=== PATIENT | male | born 1960 | race American Indian/Alaskan Native ===

== ENCOUNTER 2020-04-12 06:26 | Observation (INO) | payer OTHER ==
[2020-04-12 07:39] LABS: Hemoglobin 6.3 gm/dl (11.8-15.2); Mean Corpuscular HGB Conc 32 % (32-34); Mean Corpuscular Volume 76 fl (84-94); Platelet Count 263 K/mm3 (140-440); Red Blood Count 2.58 M/mm3 (3.65-5.03)
[2020-04-12 07:45] LABS: Hematocrit 19.7 % (35.5-45.6); Red Cell Distribution Width 23.6 % (13.2-15.2)
[2020-04-12 07:48] LABS: Calcium 9.2 mg/dL (8.4-10.2)
[2020-04-12 07:51] LABS: INR 1.03 (0.87-1.13)
[2020-04-12 07:52] LABS: Partial Thromboplastin Time 31.2 Sec. (24.2-36.6)
[2020-04-12] MEDS ORDERED: SODIUM CHLORIDE 0.9% 500 ML 500 ML IV SCH ×2 (08:00→10:00)
[2020-04-12 08:15] LABS: Hemoglobin 6.2 gm/dl (11.8-15.2); Mean Corpuscular HGB Conc 32 % (32-34); Mean Corpuscular Volume 77 fl (84-94); Platelet Count 259 K/mm3 (140-440); Red Blood Count 2.52 M/mm3 (3.65-5.03)
[2020-04-12 08:19] LABS: Hematocrit 19.5 % (35.5-45.6)
[2020-04-12 08:20] LABS: Red Cell Distribution Width 23.6 % (13.2-15.2)
[2020-04-12 08:31] LABS: Calcium 8.9 mg/dL (8.4-10.2)
[2020-04-12 09:17] LABS: Total Cells Counted 100
[2020-04-12 09:18] LABS: Anisocytosis 2+; Hypochromasia 1+; Platelet Estimate Consistent w Auto; Schistocytes 1+
[2020-04-12 09:24] LABS: Total Cells Counted 100
[2020-04-12 09:25] LABS: Anisocytosis 2+; Hypochromasia 1+; Platelet Estimate Consistent w Auto; Schistocytes 1+
[2020-04-12] MEDS ORDERED: FAMOTIDINE 20 MG TAB PO SCH (10:00)
[2020-04-12] MEDS ORDERED: ONDANSETRON 4 MG/2 ML INJ IV PRN (10:00)
[2020-04-12] MEDS ORDERED: NON-FORMULARY EACH (Simvastatin [Simvastatin] 20 MG Tablet) PO SCH (10:00)
[2020-04-12] MEDS ORDERED: ACETAMINOPHEN 325 MG TAB PO PRN (10:00)
[2020-04-12] MEDS ORDERED: HYDROmorphone 1 MG/1 ML INJ IV PRN (10:00)
[2020-04-12] MEDS ORDERED: oxyCODONE /ACETAMINOPHEN 5-325MG TAB PO PRN (10:00)
[2020-04-12] MEDS: SODIUM CHLORIDE 0.9% 1000 ML 1,000 ML IV SCH (10:00)
[2020-04-12] MEDS: FAMOTIDINE 10 MG TAB PO SCH ×2 (10:43→21:52)
--- NOTE | 2020-04-12 11:21 | Consultation ---
History of Present Illness Consult date: 04/12/20 Requesting physician: ETHEL HATHAWAY Consult reason: chest pain, known to you History of present illness: The pt is a 59 YO male with a past medical history of CAD s/p CABG, HTN, DM. He is followed in our office by Dr. Noa Palacios. He has been c/o some chest pain, dyspnea and palpitations and thus was scheduled for elective LHC today. Following arrival for procedure, labwork was noted to be significant for severe anemia with H/H 6.2/19.5 and ANGY with BUN/Cr 25/1.7 and therefore LHC was post- poned and pt admitted per hospitalists for further evaluation and management. Past History Past Medical History: CAD, diabetes, hypertension Past Surgical History: CABG Medications and Allergies Allergies Allergy/AdvReac Type Severity Reaction Status Date / Time No Known Allergies Allergy Unverified 11/27/12 21:06 Home Medications Medication Instructions Recorded Confirmed Last Taken Type Saxagliptin HCl/Metformin HCl 11/27/12 11/27/12 Unknown History [Kombiglyze XR 2.5-1,000 mg] Simvastatin 40 mg PO QDAY 11/27/12 11/27/12 Unknown History glipiZIDE [Glucotrol] 10 mg PO BID 11/27/12 11/27/12 Unknown History Active Meds: Active Medications Acetaminophen (Acetaminophen 325 Mg Tab) 650 mg PO Q4H PRN PRN Reason: Pain MILD(1-3)/Fever >100.5/CERVANTES Famotidine (Famotidine 10 Mg Tab) 10 mg PO BID ROE Last Admin: 04/12/20 10:43 Dose: 10 mg Documented by: Hydromorphone HCl (Hydromorphone 1 Mg/1 Ml Inj) 0.5 mg IV Q3H PRN PRN Reason: Pain , Severe (7-10) Sodium Chloride (Nacl 0.9% 500 Ml) 500 mls @ 50 mls/hr IV DIRECT ROE Stop: 04/12/20 17:59 Sodium Chloride (Nacl 0.9% 500 Ml) 500 mls @ 0 mls/hr IV ONCE [facility]E Stop: 04/12/20 18:00 Sodium Chloride (Nacl 0.9% 1000 Ml) 1,000 mls @ 75 mls/hr IV DIRECT [facility] Last Admin: 04/12/20 10:00 Dose: 75 mls/hr Documented by: Insulin Human Lispro (Insulin Lispro 100 Unit/Ml Vial 3 Ml) 0 unit SUB-Q ACHS COUNTS INCLUDE 234 BEDS AT THE [facility]; Protocol Ondansetron HCl (Ondansetron 4 Mg/2 Ml Inj) 4 mg IV Q8H PRN PRN Reason: Nausea And Vomiting Oxycodone/Acetaminophen (Oxycodone /Acetaminophen 5-325mg Tab) 1 tab PO Q6H PRN PRN Reason: Pain, Moderate (4-6) Pravastatin Sodium (Pravastatin 80 Mg Tab) 80 mg PO QHS COUNTS INCLUDE 234 BEDS AT THE [facility] Sodium Chloride (Sodium Chloride 0.9% 10 Ml Flush Syringe) 10 ml IV BID COUNTS INCLUDE 234 BEDS AT THE [facility] Last Admin: 04/12/20 10:43 Dose: 10 ml Documented by: Sodium Chloride (Sodium Chloride 0.9% 10 Ml Flush Syringe) 10 ml IV PRN PRN PRN Reason: LINE FLUSH Review of Systems Constitutional: no weight loss, no weight gain, no fever, no chills, no sweats Ears, nose, mouth and throat: no ear pain, no nose pain, no sinus pressure, no sinus pain Cardiovascular: chest pain, palpitations, shortness of breath, dyspnea on exertion, no orthopnea, no edema, no syncope, no lightheadedness Respiratory: shortness of breath, dyspnea on exertion, no cough, no congestion, no wheezing, no pain on inspiration Gastrointestinal: no abdominal pain, no nausea, no vomiting, no diarrhea, no constipation, no change in bowel habits, no hematemesis, no coffee ground emesis, no BRBPR, no melena Genitourinary Male: no dysuria, no hematuria, no flank pain, no discharge, no urinary frequency, no urinary hesitancy Musculoskeletal: no neck stiffness, no neck pain, no shooting arm pain, no arm numbness/tingling, no low back pain, no shooting leg pain Integumentary: no rash, no pruritis, no redness, no sores, no wounds Neurological: no head injury, no paralysis, no weakness, no parathesias, no numbness, no tingling, no seizures, no syncope Psychiatric: no anxiety Endocrine: no cold intolerance, no heat intolerance Hematologic/Lymphatic: no easy bruising Allergic/Immunologic: no urticaria Physical Examination General appearance: no acute distress HEENT: Positive: PERRL, Normocephaly, Mucus Membranes Moist Neck: Positive: neck supple, trachea midline Cardiac: Positive: Reg Rate and Rhythm, S1/S2 Lungs: Positive: clear to auscultation Neuro: Positive: Grossly Intact Abdomen: Negative: Tender Skin: Negative: Rash Musculoskeletal: No Pain Extremities: Absent: edema Results 04/12/20 08:05 04/12/20 08:05 Coagulation 04/12/20 Range/Units 07:25 PT 13.4 (12.2-14.9) Sec. INR 1.03 (0.87-1.13) APTT 31.2 (24.2-36.6) Sec. CBC 04/12/20 04/12/20 Range/Units 07:25 08:05 WBC 8.7 8.2 (4.5-11.0) K/mm3 RBC 2.58 L 2.52 L (3.65-5.03) M/mm3 Hgb 6.3 L 6.2 L (11.8-15.2) gm/dl Hct 19.7 L* 19.5 L* (35.5-45.6) % Plt Count 263 259 (140-440) K/mm3 Comprehensive Metabolic Panel 04/12/20 04/12/20 Range/Units 07:25 08:05 Sodium 138 139 (137-145) mmol/L Potassium 5.1 H 4.7 (3.6-5.0) mmol/L Chloride 104.9 106.0 (98-107) mmol/L Carbon Dioxide 23 24 (22-30) mmol/L BUN 25 H 25 H (9-20) mg/dL Creatinine 1.7 H 1.7 H (0.8-1.3) mg/dL Glucose 197 H 195 H (75-100) mg/dL Calcium 9.2 8.9 (8.4-10.2) mg/dL - Imaging and Cardiology Echo: pending, report reviewed (tte done 08/2018 showed EF 55-60%, no significant abnormalities ) EKG: report reviewed, image reviewed EKG interpretations - Telemetry EKG Rhythm: Sinus Rhythm - EKG Sinus rhythms and dysrhythmias: sinus rhythm Assessment and Plan PRBC tx and GI consultation pending per primary team. Hold home ASA 81 and plavix in setting of anemia. Resume home statin, lisinopril, no BB due to sinus bradycardia. Initiate IVF in setting of ANGY and f/u BMP in AM. Obtain tte. Plan to proceed with ischemic evaluation after medically stabilized. Currently stable cardiac status. If endoscopy is warranted, may proceed with endoscopy from cardiology standpoint. Will follow. The patient has been seen in conjunction with Dr. Riley who agrees with the assessment and plan of care. - Patient Problems (1) Symptomatic anemia Current Visit: Yes Status: Acute (2) ANGY (acute kidney injury) Current Visit: Yes Status: Acute (3) Chest pain Current Visit: Yes Status: Acute (4) CAD (coronary artery disease) Current Visit: Yes Status: Chronic (5) History of coronary artery bypass graft Current Visit: Yes Status: Chronic (6) HTN (hypertension) Current Visit: Yes Status: Chronic (7) Diabetes Current Visit: Yes Status: Chronic (8) Sinus bradycardia Current Visit: Yes Status: Chronic
[2020-04-12] MEDS: INSULIN LISPRO 100 UNIT/ML VIAL 3 mL SUB-Q SCH ×4 (14:42→22:06)
--- NOTE | 2020-04-12 16:48 | Gastroenterology Consultation ---
History of Present Illness - Reason for Consult Consult date: 04/12/20 anemia/melena Requesting physician: RAMYA CLANCY - History of Present Illness The patient is a 59 yo male with h/o cad/cabg who presented with cp, progressive weakness/sob. planned to have elected LHC, however postponed as pt found to have severe anemia. Pt reports having dark appearing stools for past couple weeks (not black appearing or obvious bleeding however). Denies abd pain , nsaid's, bowel habit changes. + reflux sx's at night. reports having colonoscopy last year with polyps removed but otherwise does not recall other significant findings. Past History Past Medical History: CAD, diabetes, hypertension Past Surgical History: CABG Medications and Allergies Allergies Allergy/AdvReac Type Severity Reaction Status Date / Time No Known Allergies Allergy Unverified 11/27/12 21:06 Home Medications Medication Instructions Recorded Confirmed Last Taken Type Saxagliptin HCl/Metformin HCl 11/27/12 11/27/12 Unknown History [Kombiglyze XR 2.5-1,000 mg] Simvastatin 40 mg PO QDAY 11/27/12 11/27/12 Unknown History glipiZIDE [Glucotrol] 10 mg PO BID 11/27/12 11/27/12 Unknown History Active Meds: Active Medications Acetaminophen (Acetaminophen 325 Mg Tab) 650 mg PO Q4H PRN PRN Reason: Pain MILD(1-3)/Fever >100.5/CERVANTES Atorvastatin Calcium (Atorvastatin 40 Mg Tab) 40 mg PO QHS ROE Famotidine (Famotidine 10 Mg Tab) 10 mg PO BID [facility] Last Admin: 04/12/20 10:43 Dose: 10 mg Documented by: Hydromorphone HCl (Hydromorphone 1 Mg/1 Ml Inj) 0.5 mg IV Q3H PRN PRN Reason: Pain , Severe (7-10) Sodium Chloride (Nacl 0.9% 500 Ml) 500 mls @ 50 mls/hr IV DIRECT ROE Stop: 04/12/20 17:59 Last Admin: 04/12/20 16:21 Dose: 50 mls/hr Documented by: Sodium Chloride (Nacl 0.9% 500 Ml) 500 mls @ 0 mls/hr IV ONCE ROE Stop: 04/12/20 18:00 Sodium Chloride (Nacl 0.9% 1000 Ml) 1,000 mls @ 75 mls/hr IV DIRECT [facility] Last Admin: 04/12/20 10:00 Dose: 75 mls/hr Documented by: Insulin Human Lispro (Insulin Lispro 100 Unit/Ml Vial 3 Ml) 0 unit SUB-Q ACHS [facility]; Protocol Last Admin: 04/12/20 14:42 Dose: Not Given Documented by: Lisinopril (Lisinopril 10 Mg Tab) 10 mg PO QDAY [facility] Ondansetron HCl (Ondansetron 4 Mg/2 Ml Inj) 4 mg IV Q8H PRN PRN Reason: Nausea And Vomiting Oxycodone/Acetaminophen (Oxycodone /Acetaminophen 5-325mg Tab) 1 tab PO Q6H PRN PRN Reason: Pain, Moderate (4-6) Sodium Chloride (Sodium Chloride 0.9% 10 Ml Flush Syringe) 10 ml IV BID [facility] Last Admin: 04/12/20 10:43 Dose: 10 ml Documented by: Sodium Chloride (Sodium Chloride 0.9% 10 Ml Flush Syringe) 10 ml IV PRN PRN PRN Reason: LINE FLUSH reviewed/updated patient's home and current medications Review of Systems - Review of Systems All systems: negative (per HPI) Exam - Constitutional Vital Signs: Temp Pulse Resp BP Pulse Ox 98.0 F 61 18 121/50 100 04/12/20 10:55 04/12/20 10:55 04/12/20 10:55 04/12/20 10:55 04/12/20 10:55 General appearance: no acute distress - Respiratory Respiratory effort: normal Respiratory: bilateral: CTA - Cardiovascular Rhythm: regular Heart Sounds: Present: S1 & S2 - Gastrointestinal General gastrointestinal: Present: soft, non-tender, non-distended - Integumentary Integumentary: Present: clear, warm - Neurologic Neurological: alert and oriented x3 - Psychiatric Psychiatric: appropriate mood/affect - Labs CBC & Chem 7: 04/12/20 08:05 04/12/20 08:05 Lab Results: Laboratory Results - last 24 hr 04/12/20 04/12/20 04/12/20 07:25 07:25 07:25 WBC 8.7 RBC 2.58 L Hgb 6.3 L Hct 19.7 L* MCV 76 L MCH 24 L MCHC 32 RDW 23.6 H Plt Count 263 Add Manual Diff Complete Total Counted 100 Seg Neuts % (Manual) 90.0 H Lymphocytes % (Manual) 7.0 L Monocytes % (Manual) 2.0 Eosinophils % (Manual) 1.0 Nucleated RBC % Not Reportable Seg Neutrophils # Man 7.8 H Band Neutrophils # 0.0 Lymphocytes # (Manual) 0.6 L Abs React Lymphs (Man) 0.0 Monocytes # (Manual) 0.2 Eosinophils # (Manual) 0.1 Basophils # (Manual) 0.0 Metamyelocytes # 0.0 Myelocytes # 0.0 Promyelocytes # 0.0 Blast Cells # 0.0 WBC Morphology Not Reportable Hypersegmented Neuts Not Reportable Hyposegmented Neuts Not Reportable Hypogranular Neuts Not Reportable Smudge Cells Not Reportable Toxic Granulation Not Reportable Toxic Vacuolation Not Reportable Dohle Bodies Not Reportable Pelger-Huet Anomaly Not Reportable Ember Rods Not Reportable Platelet Estimate Consistent w auto Clumped Platelets Not Reportable Plt Clumps, EDTA Not Reportable Large Platelets Not Reportable Giant Platelets Not Reportable Platelet Satelliting Not Reportable Plt Morphology Comment Not Reportable RBC Morphology Not Reportable Dimorphic RBCs Not Reportable Polychromasia Few Hypochromasia 1+ Poikilocytosis Not Reportable Anisocytosis 2+ Microcytosis Not Reportable Macrocytosis Not Reportable Spherocytes Not Reportable Pappenheimer Bodies Not Reportable Sickle Cells Not Reportable Target Cells Not Reportable Tear Drop Cells Not Reportable Ovalocytes Not Reportable Helmet Cells Not Reportable [place] Bodies Not Reportable Valentines Rings Not Reportable [place] Cells Not Reportable Bite Cells Not Reportable Crenated Cell Not Reportable Elliptocytes Not Reportable Acanthocytes (Spur) Not Reportable Rouleaux Not Reportable Hemoglobin C Crystals Not Reportable Schistocytes 1+ Malaria parasites Not Reportable Ariel Bodies Not Reportable Hem Pathologist Commnt No PT 13.4 INR 1.03 APTT 31.2 Sodium 138 Potassium 5.1 H Chloride 104.9 Carbon Dioxide 23 Anion Gap 15 BUN 25 H Creatinine 1.7 H Estimated GFR 50 BUN/Creatinine Ratio 15 Glucose 197 H POC Glucose Hemoglobin A1c Calcium 9.2 Blood Type Antibody Screen Crossmatch 04/12/20 04/12/20 04/12/20 08:05 08:05 13:35 WBC 8.2 RBC 2.52 L Hgb 6.2 L Hct 19.5 L* MCV 77 L MCH 25 L MCHC 32 RDW 23.6 H Plt Count 259 Add Manual Diff Complete Total Counted 100 Seg Neuts % (Manual) 82.0 H Lymphocytes % (Manual) 13.0 L Monocytes % (Manual) 4.0 Eosinophils % (Manual) 1.0 Nucleated RBC % Not Reportable Seg Neutrophils # Man 6.7 Band Neutrophils # 0.0 Lymphocytes # (Manual) 1.1 L Abs React Lymphs (Man) 0.0 Monocytes # (Manual) 0.3 Eosinophils # (Manual) 0.1 Basophils # (Manual) 0.0 Metamyelocytes # 0.0 Myelocytes # 0.0 Promyelocytes # 0.0 Blast Cells # 0.0 WBC Morphology Not Reportable Hypersegmented Neuts Not Reportable Hyposegmented Neuts Not Reportable Hypogranular Neuts Not Reportable Smudge Cells Not Reportable Toxic Granulation Not Reportable Toxic Vacuolation Not Reportable Dohle Bodies Not Reportable Pelger-Huet Anomaly Not Reportable Ember Rods Not Reportable Platelet Estimate Consistent w auto Clumped Platelets Not Reportable Plt Clumps, EDTA Not Reportable Large Platelets Not Reportable Giant Platelets Not Reportable Platelet Satelliting Not Reportable Plt Morphology Comment Not Reportable RBC Morphology Not Reportable Dimorphic RBCs Not Reportable Polychromasia Few Hypochromasia 1+ Poikilocytosis Not Reportable Anisocytosis 2+ Microcytosis Not Reportable Macrocytosis Not Reportable Spherocytes Not Reportable Pappenheimer Bodies Not Reportable Sickle Cells Not Reportable Target Cells Not Reportable Tear Drop Cells Not Reportable Ovalocytes Not Reportable Helmet Cells Not Reportable [place] Bodies Not Reportable Valentines Rings Not Reportable [place] Cells Not Reportable Bite Cells Not Reportable Crenated Cell Not Reportable Elliptocytes Not Reportable Acanthocytes (Spur) Not Reportable Rouleaux Not Reportable Hemoglobin C Crystals Not Reportable Schistocytes 1+ Malaria parasites Not Reportable Ariel Bodies Not Reportable Hem Pathologist Commnt No PT INR APTT Sodium 139 Potassium 4.7 Chloride 106.0 Carbon Dioxide 24 Anion Gap 14 BUN 25 H Creatinine 1.7 H Estimated GFR 50 BUN/Creatinine Ratio 15 Glucose 195 H POC Glucose Hemoglobin A1c 6.3 H Calcium 8.9 Blood Type Antibody Screen Crossmatch 04/12/20 04/12/20 13:42 14:10 WBC RBC Hgb Hct MCV MCH MCHC RDW Plt Count Add Manual Diff Total Counted Seg Neuts % (Manual) Lymphocytes % (Manual) Monocytes % (Manual) Eosinophils % (Manual) Nucleated RBC % Seg Neutrophils # Man Band Neutrophils # Lymphocytes # (Manual) Abs React Lymphs (Man) Monocytes # (Manual) Eosinophils # (Manual) Basophils # (Manual) Metamyelocytes # Myelocytes # Promyelocytes # Blast Cells # WBC Morphology Hypersegmented Neuts Hyposegmented Neuts Hypogranular Neuts Smudge Cells Toxic Granulation Toxic Vacuolation Dohle Bodies Pelger-Huet Anomaly Ember Rods Platelet Estimate Clumped Platelets Plt Clumps, EDTA Large Platelets Giant Platelets Platelet Satelliting Plt Morphology Comment RBC Morphology Dimorphic RBCs Polychromasia Hypochromasia Poikilocytosis Anisocytosis Microcytosis Macrocytosis Spherocytes Pappenheimer Bodies Sickle Cells Target Cells Tear Drop Cells Ovalocytes Helmet Cells [place] Bodies Valentines Rings Radha Cells Bite Cells Crenated Cell Elliptocytes Acanthocytes (Spur) Rouleaux Hemoglobin C Crystals Schistocytes Malaria parasites Ariel Bodies Hem Pathologist Commnt PT INR APTT Sodium Potassium Chloride Carbon Dioxide Anion Gap BUN Creatinine Estimated GFR BUN/Creatinine Ratio Glucose POC Glucose 161 H Hemoglobin A1c Calcium Blood Type O POSITIVE Antibody Screen Negative Crossmatch See Detail Assessment and Plan 1. Microcytic anemia - unclear baseline (states he had anemia last year from pcp labs); also with renal disease which may be contributing to anemia. however, reports recent dark stools, so will plan EGD tomorrow to assess for possible upper gi source of anemia. reports having colonoscopy last year in [place], will attempt to obtain records. blood transfusions pending. HD stable and no signs of active bleeding at this time.
--- NOTE | 2020-04-12 18:05 | History and Physical Report ---
History of Present Illness Date of examination: 04/12/20 Date of admission: 04/12/20 09:18 Chief complaint: Blood products used for 1 week History of present illness: 59-year-old male with history of coronary artery disease status post CABG followed sent from [facility] for cardiac cath. Patient was apparently having shortness of breath on minimal exertion and getting fatigued easily. In the [place] patient was found to have a hemoglobin of around 6.1 and so the Procedure was proceeded was postponed. On history taking patient has apparently been taking Motrin and has been having black tarry stools for the last 1 week. Patient ignored the symptoms and did not consult any physician. Patient has been getting shortness of breath on very minimal exertion. Also chest discomfort. No syncope. Patient being admitted for the low hemoglobin and hematocrit and work-up for possible GI bleed. Past History Past Medical History: CAD, diabetes, hypertension Past Surgical History: CABG Social history: lives with family, smoking, full code Medications and Allergies Allergies Allergy/AdvReac Type Severity Reaction Status Date / Time No Known Allergies Allergy Unverified 11/27/12 21:06 Home Medications Medication Instructions Recorded Confirmed Last Taken Type Saxagliptin HCl/Metformin HCl 11/27/12 11/27/12 Unknown History [Kombiglyze XR 2.5-1,000 mg] Simvastatin 40 mg PO QDAY 11/27/12 11/27/12 Unknown History glipiZIDE [Glucotrol] 10 mg PO BID 11/27/12 11/27/12 Unknown History Active Meds: Active Medications Acetaminophen (Acetaminophen 325 Mg Tab) 650 mg PO Q4H PRN PRN Reason: Pain MILD(1-3)/Fever >100.5/CERVANTES Atorvastatin Calcium (Atorvastatin 40 Mg Tab) 40 mg PO QHS [facility] Famotidine (Famotidine 10 Mg Tab) 10 mg PO BID [facility] Last Admin: 04/12/20 10:43 Dose: 10 mg Documented by: Hydromorphone HCl (Hydromorphone 1 Mg/1 Ml Inj) 0.5 mg IV Q3H PRN PRN Reason: Pain , Severe (7-10) Sodium Chloride (Nacl 0.9% 1000 Ml) 1,000 mls @ 75 mls/hr IV DIRECT ROE Last Admin: 04/12/20 10:00 Dose: 75 mls/hr Documented by: Insulin Human Lispro (Insulin Lispro 100 Unit/Ml Vial 3 Ml) 0 unit SUB-Q ACHS [facility]; Protocol Last Admin: 04/12/20 14:42 Dose: Not Given Documented by: Lisinopril (Lisinopril 10 Mg Tab) 10 mg PO QDAY [facility] Ondansetron HCl (Ondansetron 4 Mg/2 Ml Inj) 4 mg IV Q8H PRN PRN Reason: Nausea And Vomiting Oxycodone/Acetaminophen (Oxycodone /Acetaminophen 5-325mg Tab) 1 tab PO Q6H PRN PRN Reason: Pain, Moderate (4-6) Sodium Chloride (Sodium Chloride 0.9% 10 Ml Flush Syringe) 10 ml IV BID [facility] Last Admin: 04/12/20 10:43 Dose: 10 ml Documented by: Sodium Chloride (Sodium Chloride 0.9% 10 Ml Flush Syringe) 10 ml IV PRN PRN PRN Reason: LINE FLUSH Review of Systems All systems: negative Constitutional: fatigue, weakness Cardiovascular: chest pain, shortness of breath, dyspnea on exertion Respiratory: shortness of breath, dyspnea on exertion Gastrointestinal: melena Exam - Constitutional Vitals: Temp Pulse Resp BP Pulse Ox 97.6 F 63 16 128/38 100 04/12/20 17:05 04/12/20 17:05 04/12/20 17:05 04/12/20 17:05 04/12/20 17:05 General appearance: Present: no acute distress, well-nourished - EENT Eyes: Present: PERRL ENT: hearing intact, clear oral mucosa - Neck Neck: Present: supple, normal ROM - Respiratory Respiratory effort: normal Respiratory: bilateral: CTA - Cardiovascular Heart Sounds: Present: S1 & S2. Absent: rub, click - Extremities Extremities: pulses symmetrical, No edema Peripheral Pulses: within normal limits - Abdominal General gastrointestinal: Present: soft, non-tender, non-distended, normal bowel sounds Male genitourinary: Present: normal - Rectal Rectal Exam: stool dark (Occult blood positive) - Integumentary Integumentary: Present: clear, warm, dry - Musculoskeletal Musculoskeletal: gait normal, strength equal bilaterally - Psychiatric Psychiatric: appropriate mood/affect, intact judgment & insight - Neurologic Neurologic: CNII-XII intact, moves all extremities - Allied Health Allied health notes reviewed: nursing, case management HEART Score - HEART Score Age: 45-65 Risk factors: 1-2 risk factors Troponin: 1-3x normal limit - Critical Actions Critical Actions: 4-6 pts:12-16.6% risk of adverse cardiac event. Should be admitted Results - Labs CBC & Chem 7: 04/13/20 04:48 04/13/20 04:48 Labs: Laboratory Last Values WBC 8.2 K/mm3 (4.5-11.0) 04/12/20 08:05 RBC 2.52 M/mm3 (3.65-5.03) L 04/12/20 08:05 Hgb 6.2 gm/dl (11.8-15.2) L 04/12/20 08:05 Hct 19.5 % (35.5-45.6) L* 04/12/20 08:05 MCV 77 fl (84-94) L 04/12/20 08:05 MCH 25 pg (28-32) L 04/12/20 08:05 MCHC 32 % (32-34) 04/12/20 08:05 RDW 23.6 % (13.2-15.2) H 04/12/20 08:05 Plt Count 259 K/mm3 (140-440) 04/12/20 08:05 Add Manual Diff Complete 04/12/20 08:05 Total Counted 100 04/12/20 08:05 Seg Neuts % (Manual) 82.0 % (40.0-70.0) H 04/12/20 08:05 Lymphocytes % (Manual) 13.0 % (13.4-35.0) L 04/12/20 08:05 Monocytes % (Manual) 4.0 % (0.0-7.3) 04/12/20 08:05 Eosinophils % (Manual) 1.0 % (0.0-4.3) 04/12/20 08:05 Nucleated RBC % Not Reportable 04/12/20 08:05 Seg Neutrophils # Man 6.7 K/mm3 (1.8-7.7) 04/12/20 08:05 Band Neutrophils # 0.0 K/mm3 04/12/20 08:05 Lymphocytes # (Manual) 1.1 K/mm3 (1.2-5.4) L 04/12/20 08:05 Abs React Lymphs (Man) 0.0 K/mm3 04/12/20 08:05 Monocytes # (Manual) 0.3 K/mm3 (0.0-0.8) 04/12/20 08:05 Eosinophils # (Manual) 0.1 K/mm3 (0.0-0.4) 04/12/20 08:05 Basophils # (Manual) 0.0 K/mm3 (0.0-0.1) 04/12/20 08:05 Metamyelocytes # 0.0 K/mm3 04/12/20 08:05 Myelocytes # 0.0 K/mm3 04/12/20 08:05 Promyelocytes # 0.0 K/mm3 04/12/20 08:05 Blast Cells # 0.0 K/mm3 04/12/20 08:05 WBC Morphology Not Reportable 04/12/20 08:05 Hypersegmented Neuts Not Reportable 04/12/20 08:05 Hyposegmented Neuts Not Reportable 04/12/20 08:05 Hypogranular Neuts Not Reportable 04/12/20 08:05 Smudge Cells Not Reportable 04/12/20 08:05 Toxic Granulation Not Reportable 04/12/20 08:05 Toxic Vacuolation Not Reportable 04/12/20 08:05 Dohle Bodies Not Reportable 04/12/20 08:05 Pelger-Huet Anomaly Not Reportable 04/12/20 08:05 Ember Rods Not Reportable 04/12/20 08:05 Platelet Estimate Consistent w auto 04/12/20 08:05 Clumped Platelets Not Reportable 04/12/20 08:05 Plt Clumps, EDTA Not Reportable 04/12/20 08:05 Large Platelets Not Reportable 04/12/20 08:05 Giant Platelets Not Reportable 04/12/20 08:05 Platelet Satelliting Not Reportable 04/12/20 08:05 Plt Morphology Comment Not Reportable 04/12/20 08:05 RBC Morphology Not Reportable 04/12/20 08:05 Dimorphic RBCs Not Reportable 04/12/20 08:05 Polychromasia Few 04/12/20 08:05 Hypochromasia 1+ 04/12/20 08:05 Poikilocytosis Not Reportable 04/12/20 08:05 Anisocytosis 2+ 04/12/20 08:05 Microcytosis Not Reportable 04/12/20 08:05 Macrocytosis Not Reportable 04/12/20 08:05 Spherocytes Not Reportable 04/12/20 08:05 Pappenheimer Bodies Not Reportable 04/12/20 08:05 Sickle Cells Not Reportable 04/12/20 08:05 Target Cells Not Reportable 04/12/20 08:05 Tear Drop Cells Not Reportable 04/12/20 08:05 Ovalocytes Not Reportable 04/12/20 08:05 Helmet Cells Not Reportable 04/12/20 08:05 [place] Bodies Not Reportable 04/12/20 08:05 [place] Rings Not Reportable 04/12/20 08:05 [place] Cells Not Reportable 04/12/20 08:05 Bite Cells Not Reportable 04/12/20 08:05 Crenated Cell Not Reportable 04/12/20 08:05 Elliptocytes Not Reportable 04/12/20 08:05 Acanthocytes (Spur) Not Reportable 04/12/20 08:05 Rouleaux Not Reportable 04/12/20 08:05 Hemoglobin C Crystals Not Reportable 04/12/20 08:05 Schistocytes 1+ 04/12/20 08:05 Malaria parasites Not Reportable 04/12/20 08:05 Ariel Bodies Not Reportable 04/12/20 08:05 Hem Pathologist Commnt No 04/12/20 08:05 PT 13.4 Sec. (12.2-14.9) 04/12/20 07:25 INR 1.03 (0.87-1.13) 04/12/20 07:25 APTT 31.2 Sec. (24.2-36.6) 04/12/20 07:25 Sodium 139 mmol/L (137-145) 04/12/20 08:05 Potassium 4.7 mmol/L (3.6-5.0) 04/12/20 08:05 Chloride 106.0 mmol/L (98-107) 04/12/20 08:05 Carbon Dioxide 24 mmol/L (22-30) 04/12/20 08:05 Anion Gap 14 mmol/L 04/12/20 08:05 BUN 25 mg/dL (9-20) H 04/12/20 08:05 Creatinine 1.7 mg/dL (0.8-1.3) H 04/12/20 08:05 Estimated GFR 50 ml/min 04/12/20 08:05 BUN/Creatinine Ratio 15 % 04/12/20 08:05 Glucose 195 mg/dL (75-100) H 04/12/20 08:05 POC Glucose 196 mg/dL (70-105) H 04/12/20 17:57 Hemoglobin A1c 6.3 % (4-6) H 04/12/20 13:35 Calcium 8.9 mg/dL (8.4-10.2) 04/12/20 08:05 Blood Type O POSITIVE 04/12/20 13:42 Antibody Screen Negative 04/12/20 13:42 Crossmatch See Detail 04/12/20 13:42 - Imaging and Cardiology EKG: report reviewed (EKG reviewed sinus tachycardia no ST-T wave elevations) [place]/IV: Voiding Method Toilet IV Catheter Type [Left Wrist] Peripheral IV Assessment and Plan Advance Directives: Yes (Full code) VTE prophylaxis?: Mechanical Plan of care discussed with patient/family: Yes - Patient Problems (1) Symptomatic anemia Current Visit: Yes Status: Acute Plan to address problem: Probably secondary to GI bleed GI bleed because of dialysate Patient has been 1 to 2 units of blood transfusion GI work-up Possible EGD to rule out gastric ulcer/peptic ulcer secondary to NSAIDs (2) ANGY (acute kidney injury) Current Visit: Yes Status: Acute Plan to address problem: IV fluids for now vasomotor nephropathy (3) GI bleed due to NSAIDs Current Visit: Yes Status: Acute Plan to address problem: Patient counseled to avoid and NSAIDs (4) T2DM (type 2 diabetes mellitus) Current Visit: Yes Status: Chronic Qualifiers: Diabetes mellitus fpc insulin use: without fpc use Plan to address problem: We will hold her oral hypoglycemics and continue coverage with her insulin Check hemoglobin A1c (5) Hypertension Current Visit: Yes Status: Chronic Qualifiers: Hypertension type: essential hypertension Qualified Code(s): I10 - Essential (primary) hypertension Plan to address problem: Continue antihypertensives (6) CAD (coronary artery disease) Current Visit: Yes Status: Chronic Qualifiers: Coronary Disease-Associated Artery/Lesion type: bypass graft [place] vs. transplanted heart: [place] heart Plan to address problem: For cardiac catheter and stable Continue isosorbide (7) DVT prophylaxis Current Visit: Yes Status: Acute Plan to address problem: On SCDs and GI prophylaxis
[2020-04-12] MEDS ORDERED: PRAVASTATIN 80 MG TAB PO SCH (22:00)
[2020-04-13 05:24] LABS: Basophils # (Auto) 0.1 K/mm3 (0.0-0.1); Basophils % (Auto) 0.9 % (0.0-1.8); Eosinophils # (Auto) 0.2 K/mm3 (0.0-0.4); Eosinophils % (Auto) 3.2 % (0.0-4.3); Hematocrit 22.6 % (35.5-45.6); Hemoglobin 7.3 gm/dl (11.8-15.2); Mean Corpuscular HGB Conc 32 % (32-34); Mean Corpuscular Volume 79 fl (84-94); Monocytes # (Auto) 0.5 K/mm3 (0.0-0.8); Monocytes % (Auto) 7.7 % (0.0-7.3); Platelet Count 222 K/mm3 (140-440); Red Blood Count 2.85 M/mm3 (3.65-5.03)
[2020-04-13 05:31] LABS: Red Cell Distribution Width 22.7 % (13.2-15.2)
[2020-04-13 05:37] LABS: Albumin 3.6 g/dL (3.9-5); Calcium 8.2 mg/dL (8.4-10.2)
[2020-04-13] MEDS: SODIUM CHLORIDE 0.9% 1000 ML 1,000 ML IV SCH (05:51)
[2020-04-13] MEDS ORDERED: PANTOPRAZOLE 40 MG INJ IV SCH (05:51)
[2020-04-13] MEDS ORDERED: SODIUM CHLORIDE 0.9% 500 ML 500 ML IV ONE (05:51)
[2020-04-13] MEDS ORDERED: LISINOPRIL 10 MG TAB PO SCH (10:00)
[2020-04-13] MEDS: INSULIN LISPRO 100 UNIT/ML VIAL 3 mL SUB-Q SCH (11:26)
--- NOTE | 2020-04-13 12:47 | Progress Note ---
Assessment and Plan tte reviewed - EF 55-60%, impaired relaxation, mid anteroseptal and mid inferoseptal mae hypokinetic, trace MR and trace TR, RVSP 51mmHg. No current chest pain, dyspnea improved s/p PRBC tx. GI w/u in progress - pt for endoscopy this afternoon. Currently stable cardiac status. Cont statin, lisinopril, no BB due to sinus bradycardia. Recommend resumption of home ASA and Plavix if/when ok per GI team. Will consider rescheduling ischemic evaluation as OP once medically stabilized. Pending GI recs, pt may discharge from cardiology standpoint. Follow up tele health appt with Dr. Noa Palacios on 04/19/2020 @ 3:45PM. The patient has been seen in conjunction with Dr. Riley who agrees with the assessment and plan of care. - Patient Problems (1) Symptomatic anemia Current Visit: Yes Status: Acute (2) ANGY (acute kidney injury) Current Visit: Yes Status: Acute (3) Chest pain Current Visit: Yes Status: Resolved (4) CAD (coronary artery disease) Current Visit: Yes Status: Chronic Qualifiers: Coronary Disease-Associated Artery/Lesion type: bypass graft [place] vs. transplanted heart: [place] heart (5) History of coronary artery bypass graft Current Visit: Yes Status: Chronic (6) HTN (hypertension) Current Visit: Yes Status: Chronic (7) Diabetes Current Visit: Yes Status: Chronic (8) Sinus bradycardia Current Visit: Yes Status: Chronic Subjective Date of service: 04/13/20 Principal diagnosis: anemia Interval history: pt resting in bed, feels much better s/p PRBC tx. tele reviewed - in SR/SB HR 50-60s. Objective Last Vital Signs Temp 98.1 F 04/13/20 07:59 Pulse 54 L 04/13/20 10:00 Resp 18 04/13/20 07:59 BP 130/40 04/13/20 07:59 Pulse Ox 100 04/13/20 07:59 - Physical Examination General: No Apparent Distress HEENT: Positive: PERRL, Normocephaly, Mucus Membranes Moist Neck: Positive: neck supple, trachea midline Cardiac: Positive: Regular Rhythm, S1/S2 Lungs: Positive: Decreased Breath Sounds Neuro: Positive: Grossly Intact Abdomen: Negative: Tender Skin: Negative: Rash Musculoskeletal: No Pain Extremities: Absent: edema - Labs and Meds Cardiac Enzymes 04/13/20 Range/Units 04:48 AST 17 (5-40) units/L CBC 04/13/20 Range/Units 04:48 WBC 6.5 (4.5-11.0) K/mm3 RBC 2.85 L (3.65-5.03) M/mm3 Hgb 7.3 L (11.8-15.2) gm/dl Hct 22.6 L (35.5-45.6) % Plt Count 222 (140-440) K/mm3 Lymph # (Auto) 1.0 L (1.2-5.4) K/mm3 [place] # (Auto) 0.5 (0.0-0.8) K/mm3 Eos # (Auto) 0.2 (0.0-0.4) K/mm3 Baso # (Auto) 0.1 (0.0-0.1) K/mm3 Comprehensive Metabolic Panel 04/13/20 Range/Units 04:48 Sodium 141 (137-145) mmol/L Potassium 4.6 (3.6-5.0) mmol/L Chloride 108.7 H (98-107) mmol/L Carbon Dioxide 21 L (22-30) mmol/L BUN 20 (9-20) mg/dL Creatinine 1.5 H (0.8-1.3) mg/dL Glucose 156 H (75-100) mg/dL Calcium 8.2 L (8.4-10.2) mg/dL AST 17 (5-40) units/L ALT 17 (7-56) units/L Alkaline Phosphatase 64 (35-129) units/L Total Protein 5.7 L (6.3-8.2) g/dL Albumin 3.6 L (3.9-5) g/dL - Imaging and Cardiology EKG: report reviewed (EKG reviewed sinus tachycardia no ST-T wave elevations) Echo: report reviewed (tte done 08/2018 showed EF 55-60%, no significant abnormalities ) - Telemetry EKG Rhythm: Sinus Rhythm - EKG Sinus rhythms and dysrhythmias: sinus rhythm
[2020-04-13] MEDS ORDERED: SODIUM CHLORIDE 0.9% 1000 ML 1,000 ML IV SCH (13:00)
--- NOTE | 2020-04-13 13:02 | Anesthesia Consultation ---
Anesthesia Consult and Med Hx Date of service: 04/13/20 - Airway Anesthetic Teeth Evaluation: Good ROM Head & Neck: Adequate Mental/Hyoid Distance: Adequate Mallampati Class: Class II Intubation Access Assessment: Probably Good - Pulmonary Exam CTA: Yes - Cardiac Exam Cardiac Exam: RRR - Pre-Operative Health Status ASA Pre-Surgery Classification: ASA3 Proposed Anesthetic Plan: MAC - Pulmonary Hx Smoking: Yes (quoit 8 yrs ago) SOB: Yes (prior to admission; resolved with transfusion) - Cardiovascular System Hx Hypertension: Yes Hx Coronary Artery Disease: Yes Hx Heart Attack/AMI: Yes (s/p CABG 8 yrs ago; last dose ASA/plavix 04/11/20.) Hx Percutaneous Transluminal Coronary Angioplasty (PTCA): No Hx Cardia Arrhythmia: No - Central Nervous System CVA: No - Endocrine Hx Renal Disease: Yes (ANGY) Hx Liver Disease: No Hx Non-Insulin Dependent Diabetes: Yes Hx Thyroid Disease: No - Hematic Hx Anemia: Yes (s/p 1 unit pRBCs) - Other Systems Hx Obesity: No - Additional Comments Anesthesia Medical History Comments: No hx anesthetic complications.
--- NOTE | 2020-04-13 13:02 | Anesthesia Day of Surgery ---
Anesthesia Day of Surgery - Day of Surgery Patient Examined: Yes Patient H&P Reviewed: Yes Patient is NPO: Yes Cardiac Clearance: Yes
[2020-04-13] MEDS ORDERED: LIDOCAINE MPF (2%) 20 MG/1 ML VIAL 5 ML ONE (13:07)
[2020-04-13] MEDS ORDERED: propofoL 200 MG/20 ML VIAL IV ONE (13:07)
[2020-04-13] MEDS ORDERED: fentaNYL 100 MCG/2 ML INJ ONE (13:24)
--- NOTE | 2020-04-13 13:44 | Operative Report ---
Operative Report Operative Report: Esophagogastroduodenoscopy Procedure Note Date of procedure: 04/13/2020 Endoscopist: Raf Ferguson Pre-op diagnosis/indication: Melena, Microcytic anemia Post-op diagnosis: Unremarkable upper endoscopy MEDICATIONS: MAC COMPLICATIONS: No immediate complications ESTIMATED BLOOD LOSS: Minimal DESCRIPTION OF PROCEDURE: After consent was obtained, the patient was placed in the left lateral decubitis position. The olympus endoscope was inserted into the patient's mouth under direct vision and advanced to the 2nd portion of the duodenum without difficulty. The patient tolerated the procedure well. The views of the mucosa were good. The patient's vital signs were monitored continuously throughout the procedure. FINDINGS: The esophagus, stomach and visualized portion of the duodenum appeared normal. IMPRESSION: 1. Unremarkable upper endoscopy without source of anemia/dark stools seen during procedure. RECOMMENDATIONS: -patient had colonoscopy in 2019 with primary GI in [place] for anemia (office visit reviewed in [facility]; unable to see colonoscopy report/findings) -f/u with primary GI as outpatient for possible pill cam will sign off, please call as needed.
--- NOTE | 2020-04-13 15:04 | Post Anesthesia Evaluation ---
- Post Anesthesia Evaluation Patient Participated: Yes Airway Patent: Yes Stable Respiratory Function: Yes Nausea/Vomiting: No Temp > 96.8F: Yes Pain Manageable: Yes Adequeate Hydration: Yes Anesthesia Complications: No
[2020-04-13 15:09] VITALS: BP 134/52
--- NOTE | 2020-04-13 16:32 | Discharge Summary ---
Providers - Providers Date of Admission: 04/12/20 09:18 Date of discharge: 04/13/20 Attending physician: ETHEL HATHAWAY 04/12/20 09:27 Consult to Physician [CONS] Routine Comment: Consulting Provider: RAMYA RILEY Physician Instructions: Reason For Exam: unstable angina 04/12/20 09:37 Consult to Physician [CONS] Routine Comment: Consulting Provider: AYANA JOHNSON Physician Instructions: Reason For Exam: Anemia,?GI bleed Primary care physician[facility] course: 59-year-old male with history of coronary artery disease status post CABG followed sent from [facility] for cardiac cath. Patient was apparently having shortness of breath on minimal exertion and getting fatigued easily. 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 On history taking patient has apparently been taking Motrin and has been having black tarry stools for the last 1 week. Patient ignored the symptoms and did not consult any physician. Patient has been getting shortness of breath on very minimal exertion. Also chest discomfort. No syncope. Patient being admitted for the low hemoglobin and hematocrit and work-up for possible GI bleed. Assessment and Plan Advance Directives: Yes (Full code) VTE prophylaxis?: Mechanical Plan of care discussed with patient/family: Yes - Patient Problems (1) Symptomatic anemia Current Visit: Yes Status: Acute Plan to address problem: Probably secondary to GI bleed GI bleed because of dialysate Patient has been 1 to 2 units of blood transfusion GI work-up Possible EGD to rule out gastric ulcer/peptic ulcer secondary to NSAIDs (2) ANGY (acute kidney injury) Current Visit: Yes Status: Acute Plan to address problem: Resolved (3) GI bleed due to NSAIDs Current Visit: Yes Status: Acute Plan to address problem: Protonix 40 mg p.o. twice daily for 1 month and then 40 mg daily for GERD at least 1 year (5) Hypertension Current Visit: Yes Status: Chronic Qualifiers: Hypertension type: essential hypertension Qualified Code(s): I10 - Essential (primary) hypertension Plan to address problem: Continue antihypertensives (6) CAD (coronary artery disease) Current Visit: Yes Status: Chronic Qualifiers: Coronary Disease-Associated Artery/Lesion type: bypass graft [place] vs. transplanted heart: [place] heart Plan to address problem: Legs on tte reviewed - EF 55-60%, impaired relaxation, mid anteroseptal and mid inferoseptal mae hypokinetic, trace MR and trace TR, RVSP 51mmHg. No current chest pain, dyspnea improved s/p PRBC tx. GI w/u in progress - pt for endoscopy this afternoon. Currently stable cardiac status. Cont statin, lisinopril, no BB due to sinus bradycardia. Recommend resumption of home ASA and Plavix if/when ok per GI team. Will consider rescheduling ischemic evaluation as OP once medically stabilized. Pending GI recs, pt may discharge from cardiology standpoint. Follow up tele health appt with Dr. Noa Palacios on 04/19/2020 @ 3:45PM. The patient has been seen in conjunction with Dr. Riley who agrees with the assessment and plan of care. I have Disposition: DC-01 TO HOME OR SELFCARE Time spent for discharge: 32 minutes - Discharge Diagnoses (1) Symptomatic anemia Status: Acute (2) ANGY (acute kidney injury) Status: Acute (3) GI bleed due to NSAIDs Status: Acute (4) T2DM (type 2 diabetes mellitus) Status: Chronic Qualifiers: Diabetes mellitus care home insulin use: without extermination inspector use (5) Hypertension Status: Chronic Qualifiers: Hypertension type: essential hypertension Qualified Code(s): I10 - Essential (primary) hypertension (6) CAD (coronary artery disease) Status: Chronic Qualifiers: Coronary Disease-Associated Artery/Lesion type: bypass graft [place] vs. transplanted heart: [place] heart (7) DVT prophylaxis Status: Acute Core Measure Documentation - Palliative Care Palliative Care/ Comfort Measures: Not Applicable - Core Measures Any of the following diagnoses?: none Exam - Constitutional Vitals: Temp Pulse Resp BP Pulse Ox 98.1 F 54 L 14 134/52 96 04/13/20 14:35 04/13/20 14:35 04/13/20 14:35 04/13/20 14:35 04/13/20 14:35 General appearance: Present: no acute distress, well-nourished - EENT Eyes: Present: PERRL ENT: hearing intact, clear oral mucosa - Neck Neck: Present: supple, normal ROM - Respiratory Respiratory effort: normal Respiratory: bilateral: CTA - Cardiovascular Heart rate: 32 Rhythm: regular Heart Sounds: Present: S1 & S2. Absent: rub, click - Extremities Extremities: no ischemia, pulses intact, pulses symmetrical, No edema Peripheral Pulses: within normal limits - Abdominal General gastrointestinal: Present: soft, non-tender, non-distended, normal bowel sounds Male genitourinary: Present: normal - Integumentary Integumentary: Present: clear, warm, dry - Musculoskeletal Musculoskeletal: gait normal, strength equal bilaterally - Psychiatric Psychiatric: appropriate mood/affect, intact judgment & insight - Neurologic Neurologic: CNII-XII intact, moves all extremities Plan Activity: no restrictions Diet: low fat, low cholesterol, low salt Follow up with: SELVIN MCLEOD MD [Primary Care Provider] - 7 Days ZEV SMITH MD [Staff Physician] - 7 Days
== END 2020-04-13 17:00 | disposition home or self-care (01) ==
LOC: CATHLABREC 06:26 → 4A 09:18
PROVIDERS: ADMIT Internal Medicine; ATTEND Internal Medicine
DX: D64.9 Anemia, unspecified (principal); N17.9 Acute kidney failure, unspecified; K92.2 Gastrointestinal hemorrhage, unspecified; I10 Essential (primary) hypertension; I25.10 Atherosclerotic heart disease of native coronary artery without angina pectoris; E11.9 Type 2 diabetes mellitus without complications; R00.1 Bradycardia, unspecified; Z95.1 Presence of aortocoronary bypass graft; Z79.4 Long term (current) use of insulin
CPT/HCPCS: 36415; 36430; 43235; 80048; 80053; 82962; 83036; 85025; 85610; 85730; 86850; 86900; 86901; 86920; 93005; 93306; 96361; 96374; A9270; C9113; G0378; J1815; J2704; J3010; J7030; J7040; P9016; 85007